=== PATIENT | female | born 1995 | race Caucasian/White ===

== ENCOUNTER → 2017-09-23 | Outpatient (CLI) | payer MEDICAID | LOC: CIMAGING 15:57 | PROVIDERS: ATTEND Family Medicine | DX: S93.422A Sprain of deltoid ligament of left ankle, initial encounter (principal); S82.62XA Displaced fracture of lateral malleolus of left fibula, initial encounter for closed fracture | CPT/HCPCS: 73610-PO ==

== ENCOUNTER → 2017-12-02 | Outpatient (CLI) | payer MEDICAID | LOC: CIMAGING 15:58 | PROVIDERS: ATTEND Family Medicine | DX: S82.832A Other fracture of upper and lower end of left fibula, initial encounter for closed fracture (principal) | CPT/HCPCS: 73610-PO ==

== ENCOUNTER → 2018-01-19 | Outpatient (CLI) | payer MEDICAID | LOC: CIMAGING 16:15 | PROVIDERS: ATTEND Family Medicine | DX: S82.832D Other fracture of upper and lower end of left fibula, subsequent encounter for closed fracture with routine healing (principal) | CPT/HCPCS: 73610-PO ==